=== PATIENT | male | born 1965 | race Caucasian/White ===

== ENCOUNTER 2021-04-18 18:40 | Observation (INO) | payer OTHER ==
[~2021-04-18] VITALS: Ht 172.7 cm; Wt 97.1 kg
--- NOTE | ~2021-04-18 | HC ---
[facility] [place] [address] CONSULTATION Name: JAMIA GALLARDO Room #: 204-P [facility] IN M.R.#: [id number] Admission: 04/18/21 Attend Phys: Gabriela Ray MD Discharge: Date of : 61 Report #: [id number] THIS REPORT FOR: cc: Jair Cody MD, Paul Piezas MD Khosla,Timbo Coelho MD ~ DATE OF SERVICE: 04/19/2021 HISTORY OF PRESENT ILLNESS: A 56-year-old male patient who was admitted with acute onset of pain behind the left eye, followed by aphasia. He was brought to Emergency Room and the tele neurology was consulted and they did a CT angiogram of the head and neck and that was normal. The patient has returned back to his baseline. He has no more symptoms. He says he occasionally gets headache, but he has never been diagnosed with migraine headache. REVIEW OF SYSTEMS: Negative for any anxiety, depression or any unusual stress recently. He was told he is a prediabetic. He does have mild hypertension. He has a prior history of asthma, that is all the relevant 14-point review of system. PAST MEDICAL HISTORY: Negative for migraine. FAMILY HISTORY: Negative for migraine or early age stroke. SOCIAL HISTORY: He does drink about 1 alcoholic drink a day, but he says he does not do it every day. PHYSICAL EXAMINATION: VITAL SIGNS: Blood pressure is 126/85, respirations 16, pulse is 67, temperature is 97.7. NEUROLOGIC: The patient's examination indicate he is alert and responsive. His speech, concentration, fund of knowledge and memory is at his baseline. Cranial nerve examination II-XII looks unremarkable. He has symmetrical strength, sensation, reflexes and tone in all 4 extremities. He has no cerebellar sign. I could not look at the patient's fundus. There is no meningeal sign. HEENT: His hearing and vision is adequate. NECK: He has no thyroid mass or carotid bruit. He has no edema. CARDIORESPIRATORY: Examinations appear unremarkable. LABORATORY DATA: Indicate white count is slightly high and the glucose is slightly high. GFR is normal. HDL is 40, which is somewhat less. 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 We will also get an MRI done. We will get an echocardiogram with a bubble study. If that is negative, then this patient can [address] [address] CONSULTATION Name: JAMIA GALLARDO Room #: 204-P ADM IN M.R.#: [id number] Admission: 04/18/21 Attend Phys: Gabriela Ray MD Discharge: Date of : 61 Report #: [id number] go home on aspirin daily and can follow up with us as an outpatient and some of the testing can be done as an outpatient. Thank you very much for allowing me to share in the management of this patient and I discussed all of it with the patient and he is agreeable with this plan. By: [phone] Timbo Good MD /nt
[2021-04-18 18:50] VITALS: BP 148/90
--- NOTE | 2021-04-18 19:36 | NUR ---
PT BACK FROM CT SCAN AND TELEMED COMPUTER AT BEDSIDE.
[2021-04-18 19:43] LABS: ABSOLUTE NEUTROPHILS 8.4 thou/uL (1.4-8.2); BASOPHILS 0.7 % (0.0-2.0); EOSINOPHILS 2.3 % (0.0-3.0); HEMATOCRIT 44.3 % (42.0-52.0); HEMOGLOBIN 14.9 gm/dL (14.0-18.0); LYMPHOCYTES 25.6 % (24.0-44.0); MCH 28.9 pg (26.0-34.0); MCHC 33.5 g/dL (28.0-37.0); MCV 86.3 fL (80.0-100.0); MONOCYTES 7.3 % (1.0-8.0); PLATELET COUNT 264 thou/uL (150-400); POLYS 64.1 % (36.0-66.0); RBC 5.14 mil/uL (4.50-6.00); RDW 13.5 % (10.5-14.5); WBC 13.2 thou/uL (4.0-11.0)
[2021-04-18 19:52] LABS: CALCIUM 9.2 mg/dL (8.5-10.1); POTASSIUM 4.5 mmol/L (3.5-5.1)
[2021-04-18 20:02] LABS: TOTAL BILIRUBIN 0.3 mg/dL (0.2-1.0); TOTAL PROTEIN 7.1 g/dL (6.4-8.2)
[2021-04-18 20:16] LABS: INR 0.97; PROTIME 10.6 Seconds (10.5-12.1)
[2021-04-18 22:37] VITALS: BP 160/99
[2021-04-18 22:54] VITALS: BP 160/99
[2021-04-18] MEDS ORDERED: COZAAR 25 MG TA25 M1 PO (23:40)
[2021-04-18] MEDS ORDERED: LIPITOR40 MG PO (23:41)
[2021-04-18] MEDS ORDERED: FLONASE 0.05%50 MCG NASAL (23:41)
[2021-04-18] MEDS ORDERED: ZOLOFT 50 MG TA50 MG PO (23:41)
[2021-04-18] MEDS ORDERED: ADVAIR 100-501 EACH INH (23:42)
[2021-04-18 23:56] VITALS: BP 153/95
--- NOTE | 2021-04-18 23:56 | NUR ---
PT ALERT AND ORIENTED X4. LUNGS ARE CLEAR. ABDOMEN IS SOFT AND AND ROUND. DENIES ANY PAIN NIH SCALE WAS A O WHEN DONE. NO EDEMA NOTED. SPEECH IS CLEAR AND CONCISE NO DROOP NOTED OR APHASIA NOTED WHEN TALKING. NO DRIFT NOTED WITH LIMBS. ONGOING NURSING CARE . CALL LIGHT WITHIN REACH IF NEEDS ASSISTANCE PER STAFF
[2021-04-19 04:00] VITALS: BP 129/53
[2021-04-19 05:26] LABS: MCHC 33.3 g/dL (28.0-37.0); MCV 87.1 fL (80.0-100.0); RBC 4.82 mil/uL (4.50-6.00); RDW 13.5 % (10.5-14.5); WBC 11.6 thou/uL (4.0-11.0)
[2021-04-19 05:37] LABS: ANION GAP 7 mmol/L (7-16); BUN 16 mg/dL (7-18); CALCIUM 8.9 mg/dL (8.5-10.1); CHLORIDE 107 mmol/L (98-107); CHOLESTEROL 127 mg/dL (<200); CO2 28 mmol/L (21-32); CREATININE 0.9 mg/dL (0.7-1.3); GLUCOSE 147 mg/dL (74-106); HDL CHOLESTEROL 40 mg/dL (>40); LDL CHOLESTEROL 65 mg/dL (<100); POTASSIUM 4.5 mmol/L (3.5-5.1); SODIUM 142 mmol/L (136-145); TC:HDL 3.2 Ratio (Not establshd); TRIGLYCERIDE 113 mg/dL (<150); VLDL 23 mg/dL (<40)
[2021-04-19 05:59] LABS: SERUM ASSESSMENT Clear
[2021-04-19 07:16] VITALS: BP 126/85
--- NOTE | 2021-04-19 07:20 | EKG ---
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
[2021-04-19 11:21] VITALS: BP 138/88
--- NOTE | 2021-04-19 12:35 | 2DMMODE ---
[facility] [place] [address] 2 D/M-MODE ECHOCARDIOGRAM Name: JAMIA GALLARDO Room #: 204-P ADM IN M.R.#: [id number] Admission: 04/18/21 Attend Phys: Gabriela Ray MD Discharge: Date of : 61 Report #: [id number] THIS REPORT FOR: cc: Jair Cody MD, Paul Piezas MD Santiago, Patrick MD [facility] ~ APPROVED REPORT Study performed: 04/19/2021 10:38:39 EXAM: Comprehensive 2D, Doppler, and color-flow Echocardiogram Patient Location: Bedside Room #: 204 Status: routine BSA: 2.08 HR: 71 bpm BP: 125/85 mmHg Rhythm: NSR Other Information Study Quality: Good Indications CVA/TIA Hypertension/HDD Echo Enhancing Agent Indication: Rule out Shunt Agent(s) / Amount(s) Used: Agitated Saline 7 cc 2D Dimensions RVDd: 38.52 mm IVSd: 10.06 (7-11mm) LVOT Diam: 21.08 (18-24mm) LVDd: 42.71 mm PWd: 9.53 (7-11mm) Ascending Ao: 30.32 (22-36mm) LVDs: 27.92 (25-40mm) Left Atrium: 36.29 (27-40mm) Aortic Root: 29.86 mm IVC: 17.00 mm Volumes Left Atrial Volume (Systole) Single Plane 4CH: 38.83 mL Single Plane 2CH: 54.58 mL LA ESV Index: 25.00 mL/m2 [facility] [address] [place] [address] 2 D/M-MODE ECHOCARDIOGRAM Name: PAULINAJAMIA Room #: 204-P [facility] IN M.R.#: [id number] Admission: 04/18/21 Attend Phys: Petra Rodarte Discharge: Date of : 61 Report #: [id number] Aortic Valve AoV Peak Adrian.: 1.34 m/s AO Peak Gr.: 7.23 mmHg LVOT Max P.61 mmHg LVOT Max V: 1.07 m/s ALTAGRACIA Vmax: 2.79 cm2 Mitral Valve E/A Ratio: 0.8 MV Decel. Time: 208.68 ms MV E Max Adrian.: 0.76 m/s MV A Adrian.: 0.92 m/s MV PHT: 60.52 ms IVRT: 106.11 ms Pulmonary Valve PV Peak Adrian.: 1.21 m/s PV Peak Gr.: 5.82 mmHg Pulmonary Vein P Vein S: 0.49 m/s P Vein A: 0.27 m/s P Vein D: 0.35 m/s P Vein A Dur.: 106.1 msec P Vein S/D Ratio: 1.40 Left Ventricle The left ventricle is normal size. There is normal LV segmental wall motion. There is normal left ventricular wall thickness. Left ventricular systolic function is normal. The left ventricular ejection fraction is within the normal range. LVEF is 60-65%. Grade I - abnormal relaxation pattern. Right Ventricle The right ventricle is normal size. The right ventricular systolic function is normal. Atria The left atrium size is normal. Interatrial septum is intact without evidence of ASD or PFO. The right atrium size is normal. Aortic Valve The aortic valve is normal in structure. Trace aortic regurgitation. There is no aortic valvular stenosis. Mitral Valve The mitral valve is normal in structure. There is no mitral valve regurgitation noted. No evidence of mitral valve stenosis. Tricuspid Valve [facility] [address] [place] [address] 2 D/M-MODE ECHOCARDIOGRAM Name: JAMIA GALLARDO Room #: 204-P [facility] IN M.R.#: [id number] Admission: 04/18/21 Attend Phys: Petra Rodarte Discharge: Date of : 61 Report #: [id number] The tricuspid valve is normal in structure. There is no tricuspid valve regurgitation noted. Pulmonic Valve The pulmonary valve is normal in structure. There is no pulmonic valvular regurgitation. Great Vessels The aortic root is normal in size. IVC is normal in size and collapses >50% with inspiration. Pericardium There is no pericardial effusion. <Conclusion> Normal left ventricle size/wall thickness Ejection fraction 60-65% Grade 1 diastolic dysfunction Abnormal right ventricle size/function Normal atrial size Normal aortic/mitral valve structure and function No evidence of tricuspid valve insufficiency Normal aortic root size No pericardial effusion <ELECTRONICALLY SIGNED> By: Raymond Hurtado MD, FACC 04/19/21 1234 1234 1234 Raymond Hurtado MD, FACC /INF
[2021-04-19] MEDS ORDERED: AMOX TR-K CLV1 EAC4 PO (13:26)
[2021-04-19] MEDS ORDERED: ADULT LOW DOSE81 MG PO (13:26)
--- NOTE | 2021-04-19 14:08 | NUR ---
ORDERS RECEIVED FOR PT EVAL AND TREAT. Pt PRESENTED W/ EXP APHASIA AND HEADACHE WHICH HAS RESOLVED. SPEECH CLEAR. AO*4. DENIES PAIN OR N/T. LIVES W/ . RUNS [employer]. NO AD USE. LIVES IN SPLIT LEVEL HOME W/ 6-7 STEPS BETWEEN LEVELS W/ HR. Pt DENIES NEED FOR PT SERVICES AT THIS TIME. WAS JUST UP TO THE BATHROOM ON HIS OWN PRIOR TO PT ARRIVAL. ANTICIPATE D/C HOME W/O FURTHER THERAPY NEEDS. ACUTE PT TO SIGN OFF.
[2021-04-19 15:34] VITALS: BP 132/88
[2021-04-19 16:25] VITALS: BP 132/88
--- NOTE | 2021-04-19 16:41 | NUR ---
ASSESSMENT CHARTED. PT ALERT AND ORIENTED. VSS. DENIED HAVING PAIN OR DISCOMFORT. NIH SCORE 0. DISCHARGE ORDERS GIVEN. DISCHARGE INSTRUCTIONS GIVEN TO PT. PT VERBERLISED UNDERSTANDING.
[2021-04-20 01:06] LABS: GLYCOHEMOGLOBIN (HGB A1C) 6.5 % (4.8-5.6)
== END 2021-04-19 16:55 | disposition home or self-care (01) ==
LOC: ER 18:40 → 2N 20:01 → EROBS 20:01 → 3W 23:19 → 2N 23:20
PROVIDERS: Emergency Medicine; Nurse Practitioner Family; ADMIT Hospitalist; ATTEND Hospitalist
DX: I69.320 Aphasia following cerebral infarction (principal); Z20.822 Contact with and (suspected) exposure to COVID-19; I10 Essential (primary) hypertension; E78.5 Hyperlipidemia, unspecified; J45.909 Unspecified asthma, uncomplicated; R73.03 Prediabetes; F41.9 Anxiety disorder, unspecified; Z79.82 Long term (current) use of aspirin; Z79.899 Other long term (current) drug therapy
CPT/HCPCS: 10081